=== PATIENT | female | born 1955 | race Caucasian/White ===

== ENCOUNTER 2025-03-27 15:00 | Inpatient (IN) | payer MEDICARE, BC ==
[~2025-03-27] VITALS: Ht 167.6 cm; Wt 99.3 kg
[2025-03-27] MEDS ORDERED: DOCU100C36 PO (15:37)
[2025-03-27] MEDS ORDERED: NA P133E RC (15:37)
[2025-03-27] MEDS ORDERED: POLY15DR31 EACHEYE (15:37)
[2025-03-27] MEDS ORDERED: LEVO112T7 PO (15:37)
[2025-03-27] MEDS ORDERED: IPRA3AMP23 IH (15:37)
[2025-03-27] MEDS ORDERED: PANT40TA49 PO (15:37)
[2025-03-27] MEDS ORDERED: ACET325T53 PO ×2 (15:37)
[2025-03-27] MEDS ORDERED: ROPI1TAB6 PO (15:37)
[2025-03-27] MEDS ORDERED: POLY17PO4 PO (15:37)
[2025-03-27] MEDS ORDERED: APIX2.5T PO (15:37)
[2025-03-27] MEDS ORDERED: LORA-258 PO (15:37)
[2025-03-27] MEDS ORDERED: ATOR40TA PO (15:37)
[2025-03-27] MEDS ORDERED: CARB1TAB21 PO (15:37)
[2025-03-27] MEDS ORDERED: BISA10SU11 RC (15:37)
[2025-03-27] MEDS ORDERED: ACET-73 PO (15:37)
[2025-03-27] MEDS ORDERED: FLUT1BLS14 IH (15:37)
[2025-03-27] MEDS ORDERED: PIMA34CA PO (15:37)
[2025-03-27] MEDS ORDERED: ALBU18HF2 IH (15:37)
[2025-03-27] MEDS ORDERED: AMIO100T PO (15:37)
[2025-03-27] MEDS ORDERED: GABA300C PO (15:37)
[2025-03-27] MEDS ORDERED: MAGN400T52 PO (15:37)
[2025-03-27] MEDS ORDERED: MAGN400O6 PO (15:37)
[2025-03-27 15:46] LABS: PLATELET COUNT (AUTO) 210 K/uL (150-450); RED BLOOD CELL COUNT(AUTO) 4.54 MIL/uL (4.0-5.2); RED CELL DISTRIBUTION WIDTH 15.7 % (11.5-15.0); WHITE BLOOD COUNT (AUTO) 7.6 K/uL (4.3-11.0)
[2025-03-27 15:51] LABS: CALCIUM, SERUM 10.1 mg/dL (8.5-10.1); CREATININE 1.8 mg/dL (0.6-1.3); SODIUM SERUM 141 mmol/L (136-145); UREA NITROGEN, BLOOD 33 mg/dL (7-18)
[2025-03-27 15:57] LABS: ASPARTATE AMINOTRANSFERASE 17 U/L (15-37); TOTAL PROTEIN, SERUM 8.0 g/dL (6.4-8.2)
[2025-03-27 16:03] LABS: ALCOHOL, BLOOD < 3 mg/dL (0-10)
[2025-03-27] MEDS ORDERED: AZITHROMYCIN 250 MG TABLET ONE (16:43)
[2025-03-27] MEDS: AZITHROMYCIN 250 MG TABLET PO ONE (16:46)
[2025-03-27] MEDS ORDERED: ALBUTEROL FS 2.5 MG/0.5 ML VIAL.NEB ONE (16:52)
[2025-03-27 16:56] VITALS: O2SAT 99
[2025-03-27 16:56] LABS: APPEARANCE,URINE SLIGHTLY CLOUDY (CLEAR); BLOOD, URINE NEGATIVE Ery/uL (NEGATIVE); LEUKOCYTE ESTERASE ,URINE TRACE (NEGATIVE); NITRITE, URINE NEGATIVE (NEGATIVE); UGLUCOSE NEGATIVE (NEGATIVE)
[2025-03-27] MEDS: ALBUTEROL FS 2.5 MG/0.5 ML VIAL.NEB NEB ONE (16:56)
[2025-03-27 17:06] VITALS: O2SAT 100
[2025-03-27 17:06] LABS: ADD URINE CULTURE YES; SQUAMOUS EPITHELIAL CELL,UR Moderate /HPF (None Seen)
[2025-03-27 17:22] LABS: AMPHETAMINE, URINE NEGATIVE (NEGATIVE); BARBITURATE, URINE NEGATIVE (NEGATIVE); CANNABINOID, URINE NEGATIVE (NEGATIVE); COCCAINE, URINE NEGATIVE (NEGATIVE); OPIATE, URINE NEGATIVE (NEGATIVE)
[2025-03-27] MEDS ORDERED: CEFTRIAXONE 1GM BAG (ER ONLY) 50 ML IV ONE (17:27)
[2025-03-27] MEDS: CEFTRIAXONE 1GM BAG (ER ONLY) 1 GM/50 ML PIGGYBACK IV ONE (17:30)
[2025-03-27 17:59] LABS: BENZODIAZEPINE, URINE NEGATIVE (NEGATIVE)
[2025-03-27] MEDS ORDERED: LORAZEPAM 0.5 MG TABLET PO PRN (18:30)
[2025-03-27] MEDS ORDERED: ONDANSETRON HCL/PF 4 MG/2 ML VIAL IVP PRN (18:30)
[2025-03-27] MEDS ORDERED: ACETAMINOPHEN 325 MG TABLET PO PRN ×2 (18:30)
[2025-03-27] MEDS ORDERED: MAG HYDROX/AL HYDROX/SIMETH 30 ML UDC PO PRN (18:30)
[2025-03-27] MEDS ORDERED: IPRATROPIUM NEB FS 0.5 MG/2.5 ML AMPUL.NEB NEB PRN (18:30)
[2025-03-27] MEDS ORDERED: Z GUARD REMEDY 4 OZ OINT TP PRN (18:30)
[2025-03-27] MEDS ORDERED: ACETAMINOPHEN ES 500 MG TABLET PO PRN (18:30)
[2025-03-27] MEDS ORDERED: MAGNESIUM HYDROXIDE 30 ML UDC PO PRN ×2 (18:30)
[2025-03-27] MEDS ORDERED: ZOLPIDEM TARTRATE 5 MG TABLET PO PRN (18:30)
[2025-03-27] MEDS ORDERED: IPRATROPIUM NEB FS 0.5 MG/2.5 ML AMPUL.NEB HHN PRN (19:00)
[2025-03-27] MEDS: IV 1/2NS 1000 ML 1,000 ML IV PRN (19:59)
[2025-03-27] MEDS: ATORVASTATIN 40 MG TABLET PO SCH (21:11)
[2025-03-27] MEDS: POLYVINYL ALCOHOL 15 ML BOTTLE EACHEYE SCH (21:11)
[2025-03-27 21:30] VITALS: BP 141/112; TEMP 98.2; O2SAT 98
[2025-03-28 06:37] LABS: PLATELET COUNT (AUTO) 199 K/uL (150-450); RED BLOOD CELL COUNT(AUTO) 4.51 MIL/uL (4.0-5.2); RED CELL DISTRIBUTION WIDTH 15.3 % (11.5-15.0); WHITE BLOOD COUNT (AUTO) 5.9 K/uL (4.3-11.0)
[2025-03-28 06:49] LABS: CALCIUM, SERUM 10.4 mg/dL (8.5-10.1); CREATININE 1.6 mg/dL (0.6-1.3); PHOSPHORUS 2.8 mg/dL (2.5-4.9); SODIUM SERUM 140.0 mmol/L (136-145); UREA NITROGEN, BLOOD 32.0 mg/dL (7-18)
[2025-03-28 08:00] VITALS: BP 150/88; TEMP 97.5; O2SAT 98
[2025-03-28] MEDS ORDERED: Medication Not On Formulary EA (Pimavanserin Tartrate (Nuplazid) 34 MG) PO SCH (09:00)
[2025-03-28] MEDS: POLYETHYLENE GLYCOL 3350 17 GM POWD.PACK PO SCH (09:00)
[2025-03-28] MEDS: DOCUSATE SODIUM 100 MG CAPSULE PO SCH (09:00)
[2025-03-28] MEDS: MAGNESIUM OXIDE 400 MG TABLET PO SCH (09:21)
[2025-03-28] MEDS: LEVOTHYROXINE SODIUM 112 MCG TABLET PO SCH (09:22)
[2025-03-28] MEDS: AMIODARONE HCL 200 MG TABLET PO SCH (09:22)
[2025-03-28] MEDS: GABAPENTIN 300 MG CAPSULE PO SCH (09:23)
[2025-03-28] MEDS: PANTOPRAZOLE 40 MG TABLET.DR PO SCH (09:23)
[2025-03-28] MEDS: CARBIDOPA/LEVODOPA 25/100 MG 1 UDTAB PO SCH (09:23)
[2025-03-28] MEDS: APIXABAN 2.5 MG TABLET PO SCH (09:24)
[2025-03-28] MEDS: FLUTICASONE/VILANTEROL 1 EACH BLST.W.DEV IH SCH (09:26)
[2025-03-28 15:54] VITALS: BP 136/88; TEMP 98.1; O2SAT 94
[2025-03-28] MEDS: AZITHROMYCIN 500 MG in IV D5W 250 ML IV SCH (17:20)
[2025-03-28] MEDS: CEFTRIAXONE 1 G in IV D5W 50 ML IV SCH (18:57)
[2025-03-28 20:00] VITALS: BP 131/68; TEMP 98.2; O2SAT 97
[2025-03-28 20:19] VITALS: O2SAT 94
[2025-03-28 20:34] VITALS: O2SAT 98
[2025-03-28] MEDS: IPRATROPIUM NEB FS 0.5 MG/2.5 ML AMPUL.NEB HHN PRN (21:21)
[2025-03-28] MEDS: ALBUTEROL FS 2.5 MG/3 ML VIAL.NEB NEB PRN (21:21)
[2025-03-29 07:00] VITALS: BP 133/75; TEMP 97.7; O2SAT 96
[2025-03-29] MEDS: CLOTRIMAZOLE/BETAMETASONE DIPROPIONATE 15 GM TUBE TP SCH (08:15)
[2025-03-29 08:43] LABS: PLATELET COUNT (AUTO) 203 K/uL (150-450); RED BLOOD CELL COUNT(AUTO) 4.30 MIL/uL (4.0-5.2); RED CELL DISTRIBUTION WIDTH 15.6 % (11.5-15.0); WHITE BLOOD COUNT (AUTO) 7.4 K/uL (4.3-11.0)
[2025-03-29 09:50] VITALS: O2SAT 97
[2025-03-29 10:05] VITALS: O2SAT 100
[2025-03-29 10:07] LABS: FOLIC ACID 13.7 ng/mL (>3.0)
[2025-03-29 10:26] LABS: CREATINE KINASE, TOTAL 90.0 U/L (26-192)
[2025-03-29 10:30] LABS: URINE SODIUM, RANDOM 69.0 mmol/l (40-220)
[2025-03-29 10:31] LABS: CREATININE, URINE 48.2 MG/DL (30.0-125.0); URINE TOTAL PROTEIN 10.5 mg/dL (0-11.9)
[2025-03-29 10:32] LABS: SODIUM SERUM 140.0 mmol/L (136-145)
[2025-03-29 10:33] LABS: ASPARTATE AMINOTRANSFERASE 16.0 U/L (15-37); CALCIUM, SERUM 10.1 mg/dL (8.5-10.1); CREATININE 1.6 mg/dL (0.6-1.3); PHOSPHORUS 2.8 mg/dL (2.5-4.9); UREA NITROGEN, BLOOD 33.0 mg/dL (7-18)
[2025-03-29 10:34] LABS: TOTAL PROTEIN, SERUM 7.6 g/dL (6.4-8.2)
[2025-03-29] MEDS ORDERED: LORAZEPAM 0.5 MG TABLET PO PRN (12:00)
[2025-03-29 16:00] VITALS: BP 136/74; TEMP 97.9; O2SAT 96
[2025-03-29] MEDS: QUETIAPINE FUMARATE 25 MG TABLET PO SCH (16:46)
[2025-03-29 20:00] VITALS: BP 136/75; TEMP 98.2; O2SAT 97; O2SAT 98
[2025-03-30 07:58] LABS: PLATELET COUNT (AUTO) 184 K/uL (150-450); RED BLOOD CELL COUNT(AUTO) 4.56 MIL/uL (4.0-5.2); RED CELL DISTRIBUTION WIDTH 15.6 % (11.5-15.0); WHITE BLOOD COUNT (AUTO) 8.0 K/uL (4.3-11.0)
[2025-03-30 08:00] VITALS: BP 137/74; TEMP 97.9; O2SAT 94
[2025-03-30 08:07] LABS: PTH, INTACT 107 pg/mL (15-65)
[2025-03-30 08:57] LABS: ASPARTATE AMINOTRANSFERASE 15.0 U/L (15-37); CALCIUM, SERUM 10.0 mg/dL (8.5-10.1); CREATININE 1.5 mg/dL (0.6-1.3); PHOSPHORUS 2.9 mg/dL (2.5-4.9); SODIUM SERUM 138.0 mmol/L (136-145); TOTAL PROTEIN, SERUM 7.4 g/dL (6.4-8.2); UREA NITROGEN, BLOOD 37.0 mg/dL (7-18)
[2025-03-30 10:10] VITALS: BP 137/64
[2025-03-30] MEDS: PAROXETINE HCL 20 MG TABLET PO SCH (10:11)
[2025-03-30] MEDS: ACETAMINOPHEN 325 MG TABLET PO PRN (13:28)
[2025-03-30] MEDS ORDERED: AZITHROMYCIN 250 MG TABLET PO SCH (17:00)
[2025-04-01 04:06] LABS: VITAMIN B1 THIAMINE,WB 102.8 nmol/L (66.5-200.0)
== END 2025-03-30 16:00 | DRG 191 ==
LOC: ER 15:11 → MED 18:31
PROVIDERS: ADMIT Student in an Organized Health Care Education/Training Program
DX: J44.1 Chronic obstructive pulmonary disease with (acute) exacerbation (principal); F02.82 Dementia in other diseases classified elsewhere, unspecified severity, with psychotic disturbance; F02.83 Dementia in other diseases classified elsewhere, unspecified severity, with mood disturbance; G81.94 Hemiplegia, unspecified affecting left nondominant side; N17.9 Acute kidney failure, unspecified; N39.0 Urinary tract infection, site not specified; N18.5 Chronic kidney disease, stage 5; F02.84 Dementia in other diseases classified elsewhere, unspecified severity, with anxiety; D69.6 Thrombocytopenia, unspecified; G20.A1 Parkinson's disease without dyskinesia, without mention of fluctuations; I50.9 Heart failure, unspecified; I48.91 Unspecified atrial fibrillation; I73.9 Peripheral vascular disease, unspecified; Z79.899 Other long term (current) drug therapy; E78.5 Hyperlipidemia, unspecified; F29 Unspecified psychosis not due to a substance or known physiological condition; F41.9 Anxiety disorder, unspecified; F32.A Depression, unspecified; E03.9 Hypothyroidism, unspecified; Z88.0 Allergy status to penicillin; Z88.8 Allergy status to other drugs, medicaments and biological substances; Z79.890 Hormone replacement therapy; Z79.01 Long term (current) use of anticoagulants; B96.89 Other specified bacterial agents as the cause of diseases classified elsewhere; Z79.51 Long term (current) use of inhaled steroids; L30.4 Erythema intertrigo; L98.9 Disorder of the skin and subcutaneous tissue, unspecified; E05.90 Thyrotoxicosis, unspecified without thyrotoxic crisis or storm; Z86.73 Personal history of transient ischemic attack (TIA), and cerebral infarction without residual deficits; Z88.6 Allergy status to analgesic agent; Z93.3 Colostomy status
CPT/HCPCS: 36415; 70450-TC; 71045-TC; 76770-TC; 80048-TC; 80053-TC; 80076-TC; 81001; 82550-TC; 82570-TC; 82607-TC; 83735-TC; 83921; 83970; 84100-TC; 84155; 84165; 84300-TC; 84425; 84443-TC; 85025-TC; 87081-TC; 87086-TC; 87186-TC; A4223; G0378; G0480; J0456; J0696; J3490; J7060